=== PATIENT | female | born 1955 | race Caucasian/White ===

== ENCOUNTER 2018-12-09 18:19 | Emergency (ER) | payer BC ==
[2018-12-09 18:28] VITALS: BMI 32.5
--- NOTE | 2018-12-09 18:29 | PDOC ---
Rapid Medical Evaluation Time Seen by Provider: 12/09/18 18:24 Medical Evaluation: 12/09/18 18:24 I have performed a brief in-person evaluation of this patient. The patient presents with a chief complaint of: 2 days of R shoulder, R sided flank pain, RUQ abdominal pain w/ nausea./chills. Denies burning on urination, no vomiting. No h/o kidney stones. No chest pain I have ordered the following: CBC, CMP, UA, Ucx, lipase The patient will proceed to the ED for further evaluation. Discharge Disposition - Diagnosis Abdominal pain - Referrals - Patient Instructions - Post Discharge Activity
--- NOTE | 2018-12-09 19:04 | PDOC ---
History of Present Illness - General Chief Complaint: Pain Stated Complaint: SHOLDER AND BACK PAIN Time Seen by Provider: 12/09/18 18:24 History Source: Patient - History of Present Illness Initial Comments: 12/09/18 18:59 63 yo F PMH HTN, HLD, Right Breast Ca ( 2014 , on Anastrozole) presented to ED with R shoulder pain radiating to her RLQ. She states this pain began yesterday evening. She describes the pain as dull, although worsens to sharp pain upon movement. She states the pain is currently a 5/10 but can be a 8/10 at times. She endorses nausea, fever, shortness of breath and chills. Denies vomiting, diarrhea, constipation. Pt works in OR at [employer]. Pt states the pain wakes her from sleep and is affecting her quality of life. Past History - Past Medical History Allergies/Adverse Reactions: Allergies Allergy/AdvReac Type Severity Reaction Status Date / Time No Known Allergies Allergy Verified 12/09/18 18:25 Home Medications: Ambulatory Orders Anastrozole [Arimidex] 1 mg PO DAILY 12/09/18 Chlorthalidone 25 mg PO DAILY 12/09/18 Losartan Potassium 100 mg PO DAILY 12/09/18 Nebivolol [Bystolic -] 20 mg PO BID 12/09/18 Simvastatin [Zocor -] 40 mg PO HS 12/09/18 Cancer: Yes (breast) COPD: No HTN: Yes Hypercholesterolemia: Yes - Psycho Social/Smoking Cessation Hx Smoking History: Never smoked Review of Systems - Review of Systems Able to Perform ROS?: Yes Constitutional: Yes: Chills, Fever, Weight Stable HEENTM: No: Blurred Vision Respiratory: Yes: Shortness of Breath Cardiac (ROS): No: Chest Pain, Lightheadedness, Palpitations ABD/GI: Yes: Nausea, Other (abdominal pain). No: Constipated, Diarrhea, Poor Appetite, Vomiting Musculoskeletal: Yes: Back Pain Neurological: No: Headache *Physical Exam - Vital Signs Last Vital Signs Temp Pulse Resp BP Pulse Ox 100.8 F H 88 18 146/65 99 12/09/18 18:26 12/09/18 18:26 12/09/18 18:26 12/09/18 18:26 12/09/18 18:26 - Physical Exam General Appearance: Yes: Nourished, Appropriately Dressed HEENT: positive: Pharynx Normal Neck: positive: Supple Respiratory/Chest: positive: Lungs Clear, Normal Breath Sounds. negative: Accessory Muscle Use, Rales, Wheezing Cardiovascular: positive: Regular Rhythm, Regular Rate, S1, S2. negative: JVD Gastrointestinal/Abdominal: positive: Normal Bowel Sounds, Tender, Soft, Guarding (RLQ, RUQ), Tenderness (RLQ, RUQ), Hepatomegaly. negative: Distended Musculoskeletal: negative: CVA Tenderness Extremity: positive: Normal Inspection. negative: Calf Tenderness Integumentary: positive: Normal Color, Dry, Warm ED Treatment Course - LABORATORY CBC & Chemistry Diagram: 12/09/18 17:20 12/09/18 17:20 Medical Decision Making - Medical Decision Making 63 yo F presented to the ED with shoulder pain radiating to RLQ. -r/o cholecystitis, cholelithiasis -r/o pna , pyelonephritis -r/o metastatic disease -pending CBC, CMP, lipase -pt is febrile and also complaining of chills -CXR for SOB -EKG -Abdominal U/s to eval for cholecytitis 12/09/18 19:43 12/09/18 19:52 CBC reviewed, no leukocytosis 12/09/18 20:17 UA negative, trace LE, unlike UTI/ Pyelo 12/09/18 20:18 Lipase 132, no leukocytosis unlikely pancreatitis 12/09/18 20:44 -CMP reviewed: Cr 1.6--> PAT vs CKD -1st trop neg, no transaminitis Discharge - Discharge Information Problems reviewed: Yes Clinical Impression/Diagnosis: Abdominal pain Condition: Improved Disposition: HOME - Admission No - Follow up/Referral Referrals: Roger Candelaria MD [Primary Care Provider] - - Patient Discharge Instructions Patient Printed Discharge Instructions: DI for Prescription Opioid Use, DI for Abdominal Pain-Adult Additional Instructions: You came into the hospital with abdominal pain, shoulder pain, and shortness of breath. you had a CT, ultrasound without sign of infection. Please follow up with your primary care physician within the next 2-3 days regarding your healthcare and to monitor improvement of your symptoms. Please continue to take your home medications as prescribed. Please avoid taking drugs such as NSAIDs as it is not good for your kidney function. If you continue to have these symptoms, including worsening abdominal pain, shortness of breath, please return back to the ED. - Post Discharge Activity
[2018-12-09] MEDS ORDERED: ACETAMINOPHEN 500 MG TABLET (FP) PO ONE (19:16)
[2018-12-09] MEDS ORDERED: SODIUM CHLORIDE 1,000 ML IV STA (19:17)
[2018-12-09] MEDS ORDERED: ACETAMINOPHEN 325 MG TABLET (FP) ONE (19:32)
[2018-12-09 19:41] LABS: BASO % 1.1 % (0-2.0); EOS % 0.6 % (0-4.5); HEMATOCRIT 35.3 % (32.4-45.2); HEMOGLOBIN 11.3 GM/dL (10.7-15.3); LYMPH % 18.1 % (8-40); MCH 28.1 pg (25.7-33.7); MCHC 32.1 g/dl (32.0-36.0); MEAN CELL VOLUME 87.4 fl (80-96); MONO % 11.1 % (3.8-10.2); NEUT % 69.1 % (42.8-82.8); PLATELET COUNT 215 K/MM3 (134-434); RBC 4.04 M/mm3 (3.60-5.2); RDW 14.1 % (11.6-15.6); WHITE BLOOD COUNT 6.7 K/mm3 (4.0-10.0)
[2018-12-09 20:15] LABS: EPI CELLS 0.8 /HPF (0-5/HPF); HYALINE CASTS 0 /lpf (0-8); PH,URINE 6.5 (5.0-8.0); URINE APPEARANCE CLEAR; URINE BACTERIA 1.5 /hpf (NEGATIVE); URINE BILIRUBIN NEGATIVE (NEGATIVE); URINE COLOR YELLOW; URINE GLUCOSE (UA) NEGATIVE (NEGATIVE); URINE KETONE NEGATIVE (NEGATIVE); URINE LEUK ESTERASE TRACE (NEGATIVE); URINE NITRITE NEGATIVE (NEGATIVE); URINE PROTEIN NEGATIVE (NEGATIVE); URINE RBC 2 /hpf (0-4); URINE UROBILINOGEN 0.2 mg/dL (0.2-1.0); URINE WBC 1 /hpf (0-5)
[2018-12-09 20:21] LABS: ALBUMIN 4.1 g/dl (3.4-5.0); ALK PHOS 88 U/L (45-117); ANION GAP 7 MMOL/L (8-16); BILIRUBIN,TOTAL 0.4 mg/dL (0.2-1); BLOOD UREA NITROGEN 28.9 mg/dL (7-18); CHLORIDE 104 mmol/L (98-107); CO2 28 mmol/L (21-32); CREATININE 1.6 mg/dL (0.55-1.3); GLUCOSE,RANDOM 106 mg/dL (74-106); MAGNESIUM 2.2 mg/dL (1.8-2.4); POTASSIUM 4.2 mmol/L (3.5-5.1); SGOT/AST 25 U/L (15-37); SGPT/ALT 15 U/L (13-61); SODIUM 138 mmol/L (136-145)
--- NOTE | 2018-12-09 20:26 | PDOC ---
Documentation entered by Abbie Israel SCRIBE, acting as scribe for J Carlos Carias MD. J Carlos Carias MD: This documentation has been prepared by the Lindy walsh Adrianna, SCRIBE, under my direction and personally reviewed by me in its entirety. I confirm that the documentation accurately reflects all work, treatment, procedures, and medical decision making performed by me. Attending Attestation - Resident Resident Name: Daija Decker - ED Attending Attestation I have performed the following: I have examined & evaluated the patient, The case was reviewed & discussed with the resident, I agree w/resident's findings & plan, Exceptions are as noted - HPI HPI: 63 y.o F, with PMH of HTN, HLD, and right breast CA, presenting with right shoulder pain and RLQ abdominal pain for 2 days. Patient endorses associated right flank pain, SOB, nausea, fever, and chills. Denies vomiting, dysuria, hematuria, diarrhea, constipation, chest pain, or a history of kidney stones. Allergies: NKA, NKDA Surgical History: None reported Social History: Denies EtOH, tobacco, or illicit drug use PCP: Dr. Candelaria - Physicial Exam PE: 12/09/18 20:23 Patient is awake and alert, well-nourished, in no distress; patient is febrile normocephalic and atraumatic PERRLA, EOMI, no scleral icterus no JVD CTA RRR Right lower quadrant right upper quadrant tenderness to deep palpation, [place]' s is negative; no CVA tenderness no lower extremity edema - Medical Decision Making 12/09/18 20:25 63-year-old female with history of hypertension, hypercholesterolemia and breast CA presents with low-grade fever, chills, atraumatic right lower back, right lower quadrant and right upper quadrant abdominal pain associated with nausea. Differential diagnosis includes metastatic disease versus pneumonia versus PE versus cholelithiasis versus cholecystitis versus appendicitis. Will hydrate, will administer antipyretics. Will obtain right upper quadrant ultrasound and chest x-ray. Will reassess. Will consider CT of abdomen pelvis. 12/10/18 01:57 Patient reassessed. Patient is resting comfortably and is currently symptom- free. Patient tolerates p.o. Patient is able to ambulate briskly without developing shortness of breath or chest pain. CT of abdomen pelvis reveals platelet leg atelectasis to the right lower lobe but no evidence of acute infectious process. There is no evidence of acute intra-abdominal pathology. Will discharge with outpatient follow-up.I do not suspect ACS or PE at this time. Patient safe for outpatient discharge.
[2018-12-10 00:42] VITALS: TEMP 98.4
[2018-12-10 02:23] VITALS: BP 140/75; PULSE 82
--- NOTE | 2018-12-10 14:55 | EKG ---
Test Reason : Blood Pressure : / mmHG Vent. Rate : 081 BPM Atrial Rate : 081 BPM P-R Int : 206 ms QRS Dur : 080 ms QT Int : 354 ms P-R-T Axes : 065 -40 053 degrees QTc Int : 411 ms SINUS RHYTHM WITH FUSION COMPLEXES LEFT AXIS DEVIATION MINIMAL VOLTAGE CRITERIA FOR LVH, MAY BE NORMAL VARIANT SEPTAL INFARCT , AGE UNDETERMINED ABNORMAL ECG NO PREVIOUS ECGS AVAILABLE Confirmed by ARNULFO GABRIEL, JOLANTA ([id number]) on 12/10/2018 2:55:14 PM Referred By: Confirmed By:JOLANTA ARREDONDO MD
== END 2018-12-10 02:19 | disposition home or self-care (01) ==
LOC: JER 18:19
PROC: 3E0337Z Introduction of Electrolytic and Water Balance Substance into Peripheral Vein, Percutaneous Approach (ICD-10-PCS; principal; 2018-12-09)
DX: R10.9 Unspecified abdominal pain (principal); I10 Essential (primary) hypertension; E78.00 Pure hypercholesterolemia, unspecified; Z85.3 Personal history of malignant neoplasm of breast
CPT/HCPCS: 36415; 71046-TC-FY; 74176-TC; 76705-TC; 80053; 81003; 82550; 82553; 83690; 83735; 84484; 85025; 87040; 87086; 93005; 93010; 99283-25; J7030

== ENCOUNTER 2020-11-14 04:51 | Day surgery (SDC) | payer BC ==
[2020-11-13 13:16] VITALS: BMI 36.1
[2020-11-14 12:23] VITALS: TEMP 97.1
[2020-11-14 12:43] VITALS: PULSE 65
[2020-11-14 14:26] VITALS: BP 122/64
== END 2020-11-14 13:00 | disposition home or self-care (01) ==
LOC: JASU-SURG 04:51
PROVIDERS: ATTEND Internal Medicine Gastroenterology
PROC: 0DJD8ZZ Inspection of Lower Intestinal Tract, Via Natural or Artificial Opening Endoscopic (ICD-10-PCS; principal; 2020-11-14 11:58)
DX: Z12.11 Encounter for screening for malignant neoplasm of colon (principal); K57.30 Diverticulosis of large intestine without perforation or abscess without bleeding; Z85.3 Personal history of malignant neoplasm of breast; I10 Essential (primary) hypertension